=== PATIENT | female | born 1995 | race African-American/Black ===

== ENCOUNTER 2016-11-18 16:09 | Emergency (ER) | payer MEDICAID ==
[~2016-11-18] VITALS: Ht 144.8 cm; Wt 41.7 kg
[~2016-11-18 16:09] MED LIST: ALPR0.5T7 PO; AMLO5TAB2 PO; CYCL1TAB18 PO; FURO40TA4 PO; HYDR-2601 PO; IMIP25TA34 PO; LOSA50TA6 PO; MELA10CA PO; MET50T PO; NITR-52 PO; NOR10T PO; PANT1INJ3 PO; POTA-167 PO; TEMA30CA PO; WARF5TAB71 PO
[2016-11-18 18:11] VITALS: BP 144/84
[2016-11-18] MEDS ORDERED: IBUPROFEN 600 MG TAB PO ONE (20:30)
[2016-11-18] MEDS ORDERED: CYCLOBENZAPRINE HCL 10 MG TAB PO ONE (20:30)
== END 2016-11-18 20:55 | disposition home or self-care (01) ==
LOC: EDBD 16:09 → ER 16:17
DX: S60.212A Contusion of left wrist, initial encounter (principal); R51 Headache; V49.49XA Driver injured in collision with other motor vehicles in traffic accident, initial encounter; Y93.89 Activity, other specified; Y92.410 Unspecified street and highway as the place of occurrence of the external cause; Y99.8 Other external cause status
CPT/HCPCS: 73090; 73120

== ENCOUNTER 2019-05-15 22:05 | Emergency (ER) | payer MEDICAID ==
[~2019-05-15] VITALS: Ht 144.8 cm; Wt 41.3 kg
[~2019-05-15 22:05] MED LIST changes: +AMLO5TAB15 PO; -AMLO5TAB2 PO; +LOSA-69 PO; -LOSA50TA6 PO
[2019-05-15 22:38] LABS: Basophils # (auto) 0 uL; Basophils % (auto) 0.3 % (0.0-2.0); Eosinophils # (auto) 0.1 uL; Hematocrit 39.4 % (36.0-46.0); Hemoglobin 13.4 g/dL (12.2-16.2); Lymphocytes # (auto) 2.6 uL; Lymphocytes % (auto) 18.9 % (10.0-50.0); Mean Corpuscular Hemoglobin 31.9 pg (28.0-32.0); Mean Corpuscular Hgb Conc. 34.1 g/dL (32.0-36.0); Mean Corpuscular Volume 93.6 fL (80.0-100.0); Monocytes # (auto) 0.7 uL; Monocytes % (auto) 5.3 % (0.0-12.0); Neutrophils # (auto) 10.1 uL; Neutrophils % (auto) 74.5 % (37.0-80.0); Nucleated Red Blood Cells % 0.1 %; Platelet Count (auto) 188 10^3/uL (140-450); Red Cell Distribution Width 12.3 % (11.8-14.3); White Blood Cell 13.6 10^3/uL (4.4-10.8)
[2019-05-15 22:48] LABS: Urine Bacteria FEW /hpf (None Seen); Urine Blood Negative /uL (Negative); Urine Specific Gravity 1.008 (1.001-1.035); Urine WBC 1 /hpf (0 - 5)
[2019-05-15 22:55] LABS: Albumin 3.5 g/dL (3.4-5.0); BUN/Creatinine Ratio 12.5; Calcium 8.4 mg/dL (8.5-10.1); Potassium 3.6 mmol/L (3.5-5.1)
[2019-05-15 22:58] LABS: Bilirubin, Total 0.2 mg/dL (0.2-1.0); Total Protein 7.5 g/dL (6.4-8.2)
[2019-05-15 22:59] LABS: INR 0.95 (0.9-1.15); Partial Thromboplastin Time 25.9 sec (23.64-32.05)
[2019-05-16 02:38] VITALS: BP 118/78
== END 2019-05-16 02:40 | disposition home or self-care (01) ==
LOC: ER 22:10
DX: O20.0 Threatened abortion (principal); O16.1 Unspecified maternal hypertension, first trimester; Z87.440 Personal history of urinary (tract) infections; Z79.899 Other long term (current) drug therapy; Z3A.01 Less than 8 weeks gestation of pregnancy
CPT/HCPCS: 36415; 76801; 80053; 81001; 84702; 85025; 85610; 85730